=== PATIENT | male | born 1980 | race Caucasian/White ===

== ENCOUNTER 2024-10-30 19:01 | Inpatient (IN) | payer MEDICAID ==
[~2024-10-30] VITALS: Ht 170.2 cm; Wt 90.3 kg
[2024-10-30 19:03] VITALS: O2SAT 99
[2024-10-30] MEDS: LORAZEPAM 2MG/ML UD SYRINGE IV SCH (20:01)
[2024-10-30] MEDS: SODIUM CHLORIDE 0.9% 1,000 ML IV ONE (20:01)
[2024-10-30 20:06] LABS: HEMATOCRIT. 49.8 % (42.0-52.0); HEMOGLOBIN. 17.2 g/dL (14.0-18.0); MEAN PLATELET VOLUME 8.8 fl (7.4-10.4); PLATELET 263 x1000/uL (130-400); RED BLOOD CELL COUNT 5.66 mill/uL (4.7-6.1); RED CELL DISTRIBUTION WIDTH 14.3 % (11.6-14.6)
[2024-10-30 20:21] LABS: CREATININE 0.9 mg/dL (0.6-1.3); UREA NITROGEN BLOOD 10 mg/dL (9-23)
[2024-10-30 20:22] LABS: ETHANOL BLOOD < 10 mg/dL (<10)
[2024-10-30 20:23] LABS: ASPARTATE AMINOTRANSFERASE 23 IU/L (<34)
[2024-10-30 20:24] LABS: BILIRUBIN DIRECT 0.5 mg/dL (<=3.0); BILIRUBIN TOTAL 1.5 mg/dL (0.1-1.0); PROTEIN TOTAL 7.9 g/dL (6.0-8.3)
[2024-10-30 20:31] LABS: LYMPHOCYTES % MANUAL 11.0 % (20.0-50.0); MONOCYTES % MANUAL 6.0 % (2.0-8.0); NEUTROPHILS % MANUAL 83.0 % (45.0-75.0)
[2024-10-30 20:32] LABS: PLATELET ESTIMATE NORMAL
[2024-10-30] MEDS: POTASSIUM CHLORIDE 20MEQ/PACKET PO SCH (22:32)
[2024-10-30 22:37] LABS: CLARITY URINE CLEAR (CLEAR); COLOR URINE DARK YELLOW (YELLOW); GLUCOSE URINE NEGATIVE (NEGATIVE); KETONES URINE 4+ (NEGATIVE); LEUKOCYTE ESTERASE URINE NEGATIVE (NEGATIVE); NITRITE URINE NEGATIVE (NEGATIVE); OCCULT BLOOD URINE 1+ (NEGATIVE); PH URINE 6.0 (4.5-8.0); PROTEIN URINE 1+ (NEGATIVE); SPECIFIC GRAVITY URINE 1.034 (1.005-1.030); UROBILINOGEN URINE 1.0 E.U./dL (0.2-1.0)
[2024-10-30 22:56] LABS: BACTERIA URINE 1+; SQUAMOUS EPITHELIAL CELL URINE FEW /lpf (RARE/1+); WBC URINE 0-2 /hpf (0-2)
[2024-10-30 23:01] LABS: *AMPHETAMINES SCREEN URINE NEGATIVE (NEGATIVE); *BARBITURATES SCREEN URINE NEGATIVE (NEGATIVE); *BENZODIAZEPINES SCREEN URINE NEGATIVE (NEGATIVE); *COCAINE SCREEN URINE NEGATIVE (NEGATIVE); CANNABINOID URINE SCREEN NEGATIVE (NEGATIVE); ECSTASY MDMA SCREEN URINE NEGATIVE (NEGATIVE); METHADONE URINE SCREEN NEGATIVE (NEGATIVE); OPIATES URINE SCREEN NEGATIVE (NEGATIVE); PHENCYCLIDINE URINE SCREEN NEGATIVE (NEGATIVE)
[2024-10-31] VITALS (9 sets, daily range): BP systolic 112–143; BP diastolic 72–90; PULSE 60–120; RESP 16–20; TEMP 35.7–36.9; O2SAT 88–100
[2024-10-31] MEDS: SODIUM BICARBONATE 8.4% 50MEQ/50ML SYR IV ONE ×2 (01:12)
[2024-10-31] MEDS: MAGNESIUM 2 G PREMIX 50 ML IV ONE (01:13)
[2024-10-31] MEDS: SODIUM CHLORIDE 0.9% 1,000 ML IV SCH (06:24)
[2024-10-31 10:38] LABS: BASOPHILS % 0.3 % (0.0-2.0); EOSINOPHILS % 0.2 % (0.0-5.0); HEMATOCRIT. 48.9 % (42.0-52.0); HEMOGLOBIN. 16.5 g/dL (14.0-18.0); LYMPHOCYTES % 14.6 % (20.0-50.0); MEAN PLATELET VOLUME 8.7 fl (7.4-10.4); MONOCYTES % 9.3 % (2.0-8.0); NEUTROPHILS % 75.6 % (40.0-76.0); PLATELET 242 x1000/uL (130-400); RED BLOOD CELL COUNT 5.46 mill/uL (4.7-6.1); RED CELL DISTRIBUTION WIDTH 14.2 % (11.6-14.6)
[2024-10-31 10:58] LABS: CREATININE 0.8 mg/dL (0.6-1.3)
[2024-10-31 10:59] LABS: UREA NITROGEN BLOOD 9 mg/dL (9-23)
[2024-10-31 11:01] LABS: ASPARTATE AMINOTRANSFERASE 20 IU/L (<34); BILIRUBIN TOTAL 1.2 mg/dL (0.1-1.0); PROTEIN TOTAL 7.1 g/dL (6.0-8.3)
[2024-10-31] MEDS ORDERED: ACETAMINOPHEN 325MG TABLET PO PRN ×2 (11:45)
[2024-10-31] MEDS ORDERED: DOCUSATE SODIUM 100MG CAPSULE PO PRN (11:45)
[2024-10-31] MEDS ORDERED: ONDANSETRON HCL 4MG/2ML INJ IV PRN (11:45)
[2024-10-31] MEDS ORDERED: IPRATROPIUM/ALBUTEROL 0.5-3(2.5)MG/3ML NEB HHN PRN (11:45)
[2024-10-31] MEDS: POTASSIUM CHLORIDE 20MEQ TABLET SR PO NR (13:26)
[2024-10-31] MEDS: SODIUM CHLORIDE 0.45% 1,000 ML IV SCH (13:26)
[2024-10-31] MEDS: PANTOPRAZOLE SODIUM 40 MG/VIAL IV SCH (13:26)
[2024-10-31 17:15] LABS: CLARITY URINE CLEAR (CLEAR); COLOR URINE DARK YELLOW (YELLOW); GLUCOSE URINE NEGATIVE (NEGATIVE); KETONES URINE 4+ (NEGATIVE); LEUKOCYTE ESTERASE URINE NEGATIVE (NEGATIVE); NITRITE URINE NEGATIVE (NEGATIVE); OCCULT BLOOD URINE 1+ (NEGATIVE); PH URINE 6.0 (4.5-8.0); PROTEIN URINE 1+ (NEGATIVE); SPECIFIC GRAVITY URINE 1.031 (1.005-1.030); UROBILINOGEN URINE 1.0 E.U./dL (0.2-1.0)
[2024-10-31 17:28] LABS: *AMPHETAMINES SCREEN URINE NEGATIVE (NEGATIVE); *BARBITURATES SCREEN URINE NEGATIVE (NEGATIVE); *BENZODIAZEPINES SCREEN URINE NEGATIVE (NEGATIVE); *COCAINE SCREEN URINE NEGATIVE (NEGATIVE); CANNABINOID URINE SCREEN NEGATIVE (NEGATIVE); ECSTASY MDMA SCREEN URINE NEGATIVE (NEGATIVE); METHADONE URINE SCREEN NEGATIVE (NEGATIVE); OPIATES URINE SCREEN NEGATIVE (NEGATIVE); PHENCYCLIDINE URINE SCREEN NEGATIVE (NEGATIVE)
[2024-10-31 17:35] LABS: BACTERIA URINE NONE SEEN; SQUAMOUS EPITHELIAL CELL URINE RARE /lpf (RARE/1+); WBC URINE 0-2 /hpf (0-2)
[2024-10-31] MEDS ORDERED: ADENOSINE 3 MG/ML 2ML VIAL IV ONE (17:47)
[2024-10-31] MEDS ORDERED: AMIODARONE HCL 900 MG in DEXT 5% WATER 482 ML IV SCH (18:15)
[2024-10-31] MEDS: AMIODARONE 150MG/100ML D5W 100 ML IV NR (18:15)
[2024-10-31] MEDS: METOPROLOL TARTRATE 5MG/5ML VIAL IV NR (18:16)
[2024-10-31] MEDS: ADENOSINE 3 MG/ML 2ML VIAL IV NR (18:16)
[2024-10-31] MEDS: AMIODARONE 360MG/200ML 200 ML IV SCH (18:21)
[2024-10-31] MEDS: ENOXAPARIN 100MG/ML SYR SUBCUT SCH ×2 (20:00→23:36)
[2024-10-31] MEDS: METOPROLOL TARTRATE 25MG TABLET PO SCH (23:35)
[2024-11-01] VITALS: BP 131/97; PULSE 88; RESP 15; TEMP 36.6; O2SAT 98
[2024-11-01 04:00] VITALS: BP 143/89; PULSE 79; RESP 23; TEMP 36.6; O2SAT 94
[2024-11-01 07:33] LABS: INR 1.0
[2024-11-01 07:48] LABS: BASOPHILS % 0.1 % (0.0-2.0); EOSINOPHILS % 0.1 % (0.0-5.0); HEMATOCRIT. 48.4 % (42.0-52.0); HEMOGLOBIN. 16.5 g/dL (14.0-18.0); LYMPHOCYTES % 11.6 % (20.0-50.0); MEAN PLATELET VOLUME 9.2 fl (7.4-10.4); MONOCYTES % 8.3 % (2.0-8.0); NEUTROPHILS % 79.9 % (40.0-76.0); PLATELET 222 x1000/uL (130-400); RED BLOOD CELL COUNT 5.43 mill/uL (4.7-6.1); RED CELL DISTRIBUTION WIDTH 14.2 % (11.6-14.6)
[2024-11-01 07:53] LABS: CREATININE 0.7 mg/dL (0.6-1.3); TRIGLYCERIDE 124 mg/dL (0-150); UREA NITROGEN BLOOD 10 mg/dL (9-23)
[2024-11-01 07:54] LABS: LDL CHOLESTEROL 122 mg/dL (5-100)
[2024-11-01 07:55] LABS: ASPARTATE AMINOTRANSFERASE 18 IU/L (<34); BILIRUBIN DIRECT 0.2 mg/dL (<=3.0); BILIRUBIN TOTAL 0.7 mg/dL (0.1-1.0); PHOSPHORUS 2.1 mg/dL (2.5-4.9); PROTEIN TOTAL 7.3 g/dL (6.0-8.3)
[2024-11-01 08:00] VITALS: BP 153/101; PULSE 78; RESP 16; TEMP 36.9; O2SAT 95
[2024-11-01 12:00] VITALS: BP 141/95; PULSE 83; RESP 21; TEMP 36.9; O2SAT 97
[2024-11-01] MEDS: CLONIDINE 0.1MG TABLET PO PRN (15:00)
[2024-11-01 16:00] VITALS: BP 146/96; PULSE 90; RESP 20; TEMP 36.8; O2SAT 98
[2024-11-01 20:00] VITALS: BP 133/97; PULSE 86; RESP 31; TEMP 36.9; O2SAT 96
[2024-11-02] VITALS: BP 121/80; PULSE 68; RESP 21; TEMP 36.8; O2SAT 95
[2024-11-02 04:00] VITALS: BP 148/98; PULSE 77; RESP 34; TEMP 36.7; O2SAT 96
[2024-11-02 08:00] VITALS: BP 136/96; PULSE 66; RESP 25; TEMP 37
[2024-11-02 12:00] VITALS: BP 140/103; PULSE 83; RESP 22; TEMP 36.9; O2SAT 98
[2024-11-02] MEDS: HYDROCODONE/ACETAMINOPHEN 5/325MG TABLET PO PRN (15:48)
[2024-11-02 16:00] VITALS: BP 145/98; PULSE 90; RESP 16; TEMP 36.7; O2SAT 97
[2024-11-02 20:00] VITALS: BP 128/86; PULSE 70; RESP 18; TEMP 36.8; O2SAT 96
[2024-11-03] VITALS: BP 108/82; PULSE 65; RESP 18; TEMP 36.8; O2SAT 96
[2024-11-03 04:00] VITALS: BP 136/88; PULSE 69; RESP 21; TEMP 36.7; O2SAT 96
[2024-11-03 08:00] VITALS: BP 130/98; PULSE 81; RESP 20; TEMP 36.8; O2SAT 97
[2024-11-03] MEDS: FAMOTIDINE 20MG TABLET PO SCH (09:21)
[2024-11-03] MEDS: OLANZAPINE 5MG TABLET PO SCH (09:22)
[2024-11-03 10:03] LABS: BASOPHILS % 0.3 % (0.0-2.0); EOSINOPHILS % 0.4 % (0.0-5.0); HEMATOCRIT. 49.0 % (42.0-52.0); HEMOGLOBIN. 16.8 g/dL (14.0-18.0); LYMPHOCYTES % 11.1 % (20.0-50.0); MEAN PLATELET VOLUME 9.5 fl (7.4-10.4); MONOCYTES % 8.0 % (2.0-8.0); NEUTROPHILS % 80.2 % (40.0-76.0); PLATELET 248 x1000/uL (130-400); RED BLOOD CELL COUNT 5.53 mill/uL (4.7-6.1); RED CELL DISTRIBUTION WIDTH 13.7 % (11.6-14.6)
[2024-11-03 10:17] LABS: CREATININE 0.8 mg/dL (0.6-1.3); UREA NITROGEN BLOOD 7 mg/dL (9-23)
[2024-11-03 12:00] VITALS: BP 141/98; PULSE 67; PULSE 98; RESP 19; TEMP 37.1; O2SAT 98
[2024-11-03] MEDS ORDERED: NALOXONE HCL 0.4MG/ML VIAL IV PRN (12:15)
[2024-11-03] MEDS: POTASSIUM CHLORIDE 20MEQ/PACKET PO NR (12:23)
[2024-11-03 16:00] VITALS: BP 152/91; PULSE 97; RESP 23; TEMP 36.9; O2SAT 98
[2024-11-03] MEDS: LORAZEPAM 0.5MG TABLET PO PRN (17:15)
[2024-11-03 20:00] VITALS: BP 112/76; PULSE 94; RESP 18; TEMP 36.8; O2SAT 99
[2024-11-04] VITALS: BP 130/93; PULSE 82; RESP 18; TEMP 36.7; O2SAT 97
[2024-11-04 04:00] VITALS: BP 145/93; PULSE 86; RESP 22; TEMP 36.8; O2SAT 96
[2024-11-04 08:00] VITALS: BP 105/63; PULSE 92; RESP 17; TEMP 36.6; O2SAT 98
[2024-11-04 11:15] VITALS: BP 105/69; PULSE 89; RESP 18; TEMP 36.2; O2SAT 97
[2024-11-04 15:57] VITALS: BP 98/54; PULSE 81; RESP 16; TEMP 36.3; O2SAT 97
[2024-11-04 20:00] VITALS: BP 120/69; PULSE 92; RESP 18; TEMP 36.5; O2SAT 98
[2024-11-04] MEDS: MELATONIN 3MG TABLET PO SCH (20:44)
[2024-11-04] MEDS ORDERED: LORAZEPAM 0.5MG TABLET PO PRN (21:00)
[2024-11-05] VITALS: BP 94/56; PULSE 80; RESP 18; TEMP 36.6; O2SAT 97
[2024-11-05 04:00] VITALS: BP 101/52; PULSE 78; RESP 16; RESP 18; TEMP 36.6; O2SAT 98
[2024-11-05 08:00] VITALS: BP 90/61; PULSE 78; RESP 18; TEMP 36.4; O2SAT 99
[2024-11-05] MEDS: LORAZEPAM 1MG TABLET PO PRN (11:00)
[2024-11-05 16:00] VITALS: BP 100/77; PULSE 92; RESP 19; TEMP 36.7; O2SAT 95
[2024-11-05 20:00] VITALS: BP 120/82; PULSE 98; RESP 19; TEMP 36.4; O2SAT 97
[2024-11-06] VITALS: BP 119/80; PULSE 99; RESP 18; TEMP 36.9; O2SAT 98
[2024-11-06 04:00] VITALS: BP 130/78; PULSE 97; RESP 19; TEMP 36.6; O2SAT 99
[2024-11-06 08:00] VITALS: BP 103/63; PULSE 80; RESP 18; TEMP 36.8; O2SAT 100
[2024-11-06 12:00] VITALS: BP 116/76; PULSE 83; RESP 20; TEMP 36.6; O2SAT 100
[2024-11-06 16:00] VITALS: BP 116/79; PULSE 72; RESP 20; TEMP 36.9; O2SAT 100
[2024-11-06] MEDS: HALOPERIDOL LACTATE 5MG/ML VIAL IM NR (18:31)
[2024-11-06 20:00] VITALS: BP 114/71; PULSE 86; RESP 19; TEMP 36.6; O2SAT 96
[2024-11-07] VITALS: BP 104/56; PULSE 71; RESP 18; TEMP 36.3; O2SAT 96
[2024-11-07 04:00] VITALS: BP 107/74; PULSE 49; RESP 18; TEMP 36.5; O2SAT 94
[2024-11-07 08:00] VITALS: BP 100/70; PULSE 70; RESP 18; TEMP 36.3; O2SAT 97
[2024-11-07 12:00] VITALS: BP 107/66; PULSE 82; RESP 19; TEMP 36.4; O2SAT 97
[2024-11-07] MEDS: LORAZEPAM 1MG TABLET PO PRN (12:35)
[2024-11-07 16:00] VITALS: BP 118/73; PULSE 88; RESP 19; TEMP 36.2; O2SAT 98
[2024-11-07 20:00] VITALS: BP 102/64; PULSE 92; RESP 18; TEMP 36.3; O2SAT 100
[2024-11-08] VITALS: BP 93/59; PULSE 70; RESP 18; TEMP 36.3; O2SAT 100
[2024-11-08 04:00] VITALS: BP 98/42; PULSE 71; RESP 18; TEMP 36.1; O2SAT 100
[2024-11-08 08:00] VITALS: BP 96/53; PULSE 81; RESP 21; TEMP 36.6; O2SAT 96
[2024-11-08 12:00] VITALS: BP 93/55; PULSE 80; RESP 21; TEMP 37.5; O2SAT 96
[2024-11-08 16:00] VITALS: BP 103/63; PULSE 80; RESP 21; TEMP 37.3; O2SAT 95
[2024-11-08 20:00] VITALS: BP 121/66; PULSE 88; RESP 20; TEMP 36.5; O2SAT 96
[2024-11-09] VITALS: BP 116/56; PULSE 82; RESP 20; TEMP 36.4; O2SAT 97
[2024-11-09 04:00] VITALS: BP 94/59; PULSE 67; RESP 18; TEMP 36.6; O2SAT 97
[2024-11-09 08:00] VITALS: BP 101/56; PULSE 73; RESP 17; TEMP 36.4; O2SAT 98
[2024-11-09 12:00] VITALS: BP 103/60; PULSE 70; RESP 18; TEMP 36.3; O2SAT 99
[2024-11-09 16:00] VITALS: BP 108/54; PULSE 80; RESP 20; TEMP 35.9; O2SAT 96
[2024-11-09 20:00] VITALS: BP 103/63; PULSE 84; RESP 18; TEMP 35.5; O2SAT 97
[2024-11-10] VITALS: BP 92/54; PULSE 76; RESP 18; TEMP 35.8; O2SAT 98
[2024-11-10 04:00] VITALS: BP 94/56; PULSE 72; RESP 18; TEMP 36.1; O2SAT 97
[2024-11-10 07:24] LABS: BASOPHILS % 0.3 % (0.0-2.0); EOSINOPHILS % 2.5 % (0.0-5.0); HEMATOCRIT. 44.1 % (42.0-52.0); HEMOGLOBIN. 15.3 g/dL (14.0-18.0); LYMPHOCYTES % 25.8 % (20.0-50.0); MEAN PLATELET VOLUME 9.0 fl (7.4-10.4); MONOCYTES % 9.8 % (2.0-8.0); NEUTROPHILS % 61.6 % (40.0-76.0); PLATELET 262 x1000/uL (130-400); RED BLOOD CELL COUNT 4.95 mill/uL (4.7-6.1); RED CELL DISTRIBUTION WIDTH 13.6 % (11.6-14.6)
[2024-11-10 07:41] LABS: CREATININE 0.7 mg/dL (0.6-1.3); UREA NITROGEN BLOOD 6 mg/dL (9-23)
[2024-11-10 08:00] VITALS: BP 106/63; PULSE 70; RESP 17; TEMP 36.4; O2SAT 97
[2024-11-10 12:00] VITALS: BP 97/61; PULSE 78; RESP 18; TEMP 36.6; O2SAT 99
[2024-11-10 16:00] VITALS: BP 100/54; PULSE 80; RESP 19; TEMP 35.6; O2SAT 98
[2024-11-10 20:00] VITALS: BP 103/64; PULSE 69; RESP 21; TEMP 36.7; O2SAT 96
[2024-11-11] VITALS: BP 94/59; PULSE 65; RESP 21; TEMP 36.6; O2SAT 100
[2024-11-11 04:00] VITALS: BP 90/58; PULSE 54; RESP 21; TEMP 36.7; O2SAT 95
[2024-11-11 08:00] VITALS: BP 114/70; PULSE 68; RESP 17; TEMP 36.4; O2SAT 97
[2024-11-11 20:00] VITALS: BP 99/62; PULSE 89; RESP 18; TEMP 36.3; O2SAT 95
[2024-11-12] VITALS: PULSE 77; RESP 18; TEMP 36.5; O2SAT 98
[2024-11-12 08:00] VITALS: BP 91/60; PULSE 68; RESP 18; TEMP 36.2; O2SAT 96
[2024-11-12 16:00] VITALS: BP 113/63; PULSE 68; RESP 18; TEMP 36.1; O2SAT 97
[2024-11-12 20:14] VITALS: BP 106/63; PULSE 80; RESP 18; TEMP 36.6; O2SAT 96
[2024-11-13] VITALS: BP 111/82; PULSE 72; RESP 18; TEMP 36.6; O2SAT 98
[2024-11-13 04:00] VITALS: BP 115/73; PULSE 78; RESP 18; TEMP 36.3; O2SAT 97
[2024-11-13 08:00] VITALS: BP 100/60; PULSE 80; RESP 18; TEMP 36.7; O2SAT 97
[2024-11-13 12:00] VITALS: BP 111/63; PULSE 104; RESP 19; TEMP 36.2; O2SAT 99
[2024-11-13 16:00] VITALS: BP 132/94; PULSE 94; RESP 18; TEMP 36.1; O2SAT 97
[2024-11-13] MEDS: LORAZEPAM 1MG TABLET PO SCH (19:58)
[2024-11-13 20:00] VITALS: BP 141/88; PULSE 98; RESP 19; TEMP 36.3; O2SAT 95
[2024-11-13] MEDS: HALOPERIDOL LACTATE 5MG/ML VIAL IM SCH (22:41)
[2024-11-13] MEDS: DIPHENHYDRAMINE 50MG/ML VIAL IM SCH (22:41)
[2024-11-13] MEDS: LORAZEPAM 2MG/ML UD SYRINGE IM SCH (22:41)
[2024-11-13] MEDS: OLANZAPINE 5MG TABLET PO SCH (22:47)
[2024-11-14] VITALS: BP 118/78; PULSE 92; RESP 18; TEMP 36.3; O2SAT 97
[2024-11-14 04:00] VITALS: BP 116/75; PULSE 79; RESP 18; TEMP 36.4; O2SAT 97
[2024-11-14] MEDS ORDERED: LORAZEPAM 2MG/ML UD SYRINGE IV PRN (09:00)
[2024-11-14 12:00] VITALS: BP 114/75; PULSE 102; RESP 21; TEMP 36.9; O2SAT 96
[2024-11-14] MEDS: HALOPERIDOL LACTATE 5MG/ML VIAL IM PRN (19:01)
[2024-11-14 20:00] VITALS: BP 110/71; PULSE 97; RESP 18; TEMP 36.3; TEMP 36.6; O2SAT 97
[2024-11-14] MEDS: TRAZODONE HCL 50MG TABLET PO SCH (20:56)
[2024-11-15] VITALS: BP 92/56; PULSE 81; RESP 18; TEMP 36.5; O2SAT 96
[2024-11-15] MEDS: ZOLPIDEM TARTRATE 5MG TABLET PO PRN (01:39)
[2024-11-15] MEDS: LORAZEPAM 1MG TABLET ONE (01:40)
[2024-11-15 08:00] VITALS: BP 95/58; PULSE 86; RESP 18; TEMP 36.5; O2SAT 95
[2024-11-15 20:00] VITALS: BP 110/58; PULSE 82; RESP 18; TEMP 36.6; O2SAT 96
[2024-11-16 04:00] VITALS: BP 98/52; PULSE 85; RESP 18; TEMP 36.6; O2SAT 98
[2024-11-16 08:00] VITALS: BP 112/65; PULSE 85; RESP 17; TEMP 36.4; O2SAT 98
[2024-11-16 09:45] VITALS: PULSE 85
[2024-11-16] MEDS ORDERED: TRAZ-251 PO (13:09)
[2024-11-16] MEDS ORDERED: APIX5TAB MT (13:09)
[2024-11-16] MEDS ORDERED: MELA3TAB40 PO (13:09)
[2024-11-16] MEDS ORDERED: OLAN5TAB74 PO (13:09)
== END 2024-11-16 20:35 | DRG 812 ==
LOC: ER 19:01 → 5WST 10-31 00:29 → EDBEDREQTM 10-31 00:42 → EDBEDREQ 10-31 00:42 → ENRESERV 10-31 00:48 → 3WST 10-31 22:10 → 7EST 11-04 04:30
PROVIDERS: ADMIT Internal Medicine; ATTEND Internal Medicine
DX: T50.901A Poisoning by unspecified drugs, medicaments and biological substances, accidental (unintentional), initial encounter (principal); G92.8 Other toxic encephalopathy; F33.2 Major depressive disorder, recurrent severe without psychotic features; D72.829 Elevated white blood cell count, unspecified; I48.0 Paroxysmal atrial fibrillation; E87.6 Hypokalemia; F20.9 Schizophrenia, unspecified; F41.9 Anxiety disorder, unspecified; Z20.822 Contact with and (suspected) exposure to COVID-19; T44.3X5A Adverse effect of other parasympatholytics [anticholinergics and antimuscarinics] and spasmolytics, initial encounter; E80.6 Other disorders of bilirubin metabolism; Z91.51 Personal history of suicidal behavior; Z91.85 Personal history of military service; Y92.89 Other specified places as the place of occurrence of the external cause
CPT/HCPCS: 36415; 70551; 80048; 80053; 80061; 80076; 80305; 80307; 80320; 80329; 81003; 82962; 83735; 84100; 84145; 85025; 87426; 93005; 93308; 99291; A4606; J0153; J0282; J1200; J1630; J1650; J2060; J2470; J3475; J3490; J7030; G0480

== ENCOUNTER 2025-01-30 19:20 | Inpatient (IN) | payer SELFPAY ==
[~2025-01-30] VITALS: Ht 177.8 cm; Wt 79.8 kg
[~2025-01-30 19:20] MED LIST: APIX5TAB MT; MELA3TAB40 PO; OLAN5TAB74 PO; TRAZ-251 PO
[2025-01-30 19:23] VITALS: O2SAT 100
[2025-01-30 20:10] LABS: BASOPHILS % 0.5 % (0.0-2.0); EOSINOPHILS % 0.6 % (0.0-5.0); HEMATOCRIT. 51.9 % (42.0-52.0); HEMOGLOBIN. 17.5 g/dL (14.0-18.0); LYMPHOCYTES % 18.3 % (20.0-50.0); MEAN PLATELET VOLUME 8.4 fl (7.4-10.4); MONOCYTES % 8.6 % (2.0-8.0); NEUTROPHILS % 72.0 % (40.0-76.0); PLATELET 220 x1000/uL (130-400); RED BLOOD CELL COUNT 5.68 mill/uL (4.7-6.1); RED CELL DISTRIBUTION WIDTH 14.6 % (11.6-14.6)
[2025-01-30 20:31] LABS: CREATININE 0.7 mg/dL (0.6-1.3)
[2025-01-30 20:32] LABS: ETHANOL BLOOD < 10 mg/dL (<10); UREA NITROGEN BLOOD 7 mg/dL (9-23)
[2025-01-30 20:33] LABS: ASPARTATE AMINOTRANSFERASE 19 IU/L (<34); BILIRUBIN DIRECT 0.3 mg/dL (<=3.0)
[2025-01-30 20:34] LABS: BILIRUBIN TOTAL 1.3 mg/dL (0.1-1.0); PROTEIN TOTAL 7.6 g/dL (6.0-8.3)
[2025-01-30 21:15] LABS: INR 1.1
[2025-01-31 01:28] VITALS: BP 138/78; PULSE 70; RESP 19; TEMP 36.418
[2025-01-31] MEDS ORDERED: ACETAMINOPHEN 325MG TABLET PO PRN (02:00)
[2025-01-31] MEDS: HALOPERIDOL LACTATE 5MG/ML VIAL IM NR (02:45)
[2025-01-31 08:00] VITALS: BP 119/57; PULSE 62; RESP 18; TEMP 36.6; O2SAT 98
[2025-01-31] MEDS: ENOXAPARIN 40MG/0.4ML SYR SUBCUT SCH (08:39)
[2025-01-31 12:00] VITALS: BP 129/64; PULSE 108; RESP 22; TEMP 36.7; O2SAT 98
[2025-01-31 12:18] LABS: PLATELET 270 x1000/uL (130-400); RED BLOOD CELL COUNT 5.90 mill/uL (4.7-6.1); RED CELL DISTRIBUTION WIDTH 15.0 % (11.6-14.6)
[2025-01-31] MEDS: HALOPERIDOL LACTATE 5MG/ML VIAL IM PRN (12:28)
[2025-01-31 12:52] LABS: CREATININE 0.8 mg/dL (0.6-1.3); UREA NITROGEN BLOOD 7 mg/dL (9-23)
[2025-01-31] MEDS ORDERED: LORAZEPAM 1MG TABLET PO PRN (13:30)
[2025-01-31] MEDS: LORAZEPAM 2MG/ML UD SYRINGE IM PRN (14:46)
[2025-01-31] MEDS: DIPHENHYDRAMINE 50MG/ML VIAL IM NR (14:46)
[2025-01-31 20:00] VITALS: BP 127/91; PULSE 125; RESP 20; TEMP 36.9; O2SAT 95
[2025-01-31] MEDS: RISPERIDONE 0.5MG TABLET PO SCH (20:15)
[2025-01-31] MEDS: ZOLPIDEM TARTRATE 5MG TABLET PO PRN (20:15)
[2025-02-01] VITALS: BP 124/86; PULSE 109; RESP 20; TEMP 36.8; O2SAT 96
[2025-02-01 04:00] VITALS: BP 126/88; PULSE 100; RESP 20; TEMP 36.4; O2SAT 97
[2025-02-01] MEDS: HALOPERIDOL LACTATE 5MG/ML VIAL IM PRN (10:58)
[2025-02-01] MEDS ORDERED: DIPHENHYDRAMINE 50MG/ML VIAL IV PRN (11:30)
[2025-02-01 12:00] VITALS: BP 113/85; PULSE 121; RESP 18; TEMP 35.8; O2SAT 96
[2025-02-01 16:00] VITALS: BP 117/95; PULSE 123; RESP 18; TEMP 37.1; O2SAT 96
[2025-02-01 17:08] LABS: GLUCOSE URINE NEGATIVE (NEGATIVE); KETONES URINE 2+ (NEGATIVE); LEUKOCYTE ESTERASE URINE NEGATIVE (NEGATIVE); NITRITE URINE NEGATIVE (NEGATIVE); OCCULT BLOOD URINE NEGATIVE (NEGATIVE); PH URINE 5.5 (4.5-8.0); PROTEIN URINE 1+ (NEGATIVE); SPECIFIC GRAVITY URINE 1.039 (1.005-1.030); UROBILINOGEN URINE 0.2 E.U./dL (0.2-1.0)
[2025-02-01 17:26] LABS: CLARITY URINE SL HAZY (CLEAR); COLOR URINE YELLOW (YELLOW)
[2025-02-01 17:56] LABS: BACTERIA URINE NONE SEEN; MUCUS URINE 2+ /lpf (NONE/TRACE); RBC URINE 0-2 /hpf (0-2); SQUAMOUS EPITHELIAL CELL URINE NONE SEEN /lpf (RARE/1+); WBC URINE NONE SEEN /hpf (0-2)
[2025-02-01 20:00] VITALS: BP 123/81; PULSE 121; RESP 18; TEMP 36.9; O2SAT 98
[2025-02-02] VITALS: BP 109/64; PULSE 116; RESP 18; TEMP 36.7; O2SAT 97
[2025-02-02 04:00] VITALS: BP 98/69; PULSE 106; RESP 17; TEMP 36.7; O2SAT 98
[2025-02-02 12:00] VITALS: BP 93/71; PULSE 55; RESP 16; TEMP 35.8; O2SAT 97
[2025-02-02] MEDS: MIDODRINE HCL 5MG TABLET PO SCH (15:58)
[2025-02-02] MEDS: ENOXAPARIN 40MG/0.4ML SYR SUBCUT SCH (15:58)
[2025-02-02 16:00] VITALS: BP 92/64; PULSE 64; RESP 16; TEMP 36.2; O2SAT 96
[2025-02-02 19:55] VITALS: BP 102/67; PULSE 94; RESP 18; TEMP 36.3; O2SAT 99
[2025-02-02] MEDS: METOPROLOL TARTRATE 25MG TABLET PO SCH (20:35)
[2025-02-03 12:00] VITALS: BP 94/55; PULSE 93; RESP 20; TEMP 35.2; O2SAT 93
[2025-02-03 16:00] VITALS: BP 99/61; PULSE 96; RESP 20; TEMP 36.2; O2SAT 95
[2025-02-03] MEDS: RISPERIDONE 1MG TABLET PO SCH (20:47)
[2025-02-04 08:00] VITALS: BP 96/54; PULSE 19; RESP 19; TEMP 36.4; O2SAT 97
[2025-02-04 11:33] VITALS: BP 100/60; PULSE 70; RESP 20; TEMP 98.7
== END 2025-02-04 11:46 | disposition home or self-care (01) | DRG 817 ==
LOC: ER 19:20 → 7WST 22:24 → EDBEDREQTM 22:26 → EDBEDREQ 22:26 → ENRESERV 22:42 → 8EST 02-01 11:28
PROVIDERS: ADMIT Internal Medicine; ATTEND Internal Medicine
DX: T43.222A Poisoning by selective serotonin reuptake inhibitors, intentional self-harm, initial encounter (principal); F20.9 Schizophrenia, unspecified; F32.A Depression, unspecified; Y92.89 Other specified places as the place of occurrence of the external cause; F43.10 Post-traumatic stress disorder, unspecified; G47.00 Insomnia, unspecified; Z91.51 Personal history of suicidal behavior; Z91.85 Personal history of military service
CPT/HCPCS: 36415; 80048; 80076; 80307; 80320; 80329; 81003; 82962; 83735; 85025; 85027; 87426; 93005; 99291; J1200; J1630; J1650; J2060; G0480